=== PATIENT | female | born 1980 | race Two or more races ===

== ENCOUNTER 2023-08-28 04:07 | Emergency (ER) | payer OTHER ==
[~2023-08-28] VITALS: Ht 154.9 cm; Wt 68.0 kg
[2023-08-28] MEDS ORDERED: IBUP-1953 PO (04:30)
[2023-08-28] MEDS ORDERED: ACETAMINOPHEN ES 500 MG TABLET ONE (04:30)
[2023-08-28] MEDS ORDERED: IBUPROFEN 600 MG TABLET ONE (04:30)
[2023-08-28] MEDS: ACETAMINOPHEN ES 500 MG TABLET PO ONE (04:33)
[2023-08-28] MEDS: IBUPROFEN 600 MG TABLET PO ONE (04:33)
[2023-08-28 04:36] VITALS: BP 134/68; TEMP 98.1; O2SAT 99
== END 2023-08-28 04:36 ==
LOC: ER 04:10
DX: S46.811A Strain of other muscles, fascia and tendons at shoulder and upper arm level, right arm, initial encounter (principal); X58.XXXA Exposure to other specified factors, initial encounter; Y93.89 Activity, other specified; Y92.89 Other specified places as the place of occurrence of the external cause; Y99.8 Other external cause status